=== PATIENT | female | born 1995 | race Two or more races ===

== ENCOUNTER 2024-05-26 22:20 | Emergency (ER) | payer SELFPAY ==
[~2024-05-26] VITALS: Ht 154.9 cm; Wt 55.0 kg
[2024-05-26 23:18] LABS: Urine Bacteria None Seen /hpf (None Seen)
[2024-05-26 23:23] LABS: Urine Blood Negative /uL (Negative); Urine Clarity Clear (Clear); Urine Color Yellow (Yellow); Urine Protein, UAD TRACE (Negative); Urine Specific Gravity 1.031 (1.001-1.035); Urine Urobilinogen Normal (Negative); Urine WBC 1 /hpf (0 - 5); Urine pH 6.5 (5.0-9.0)
[2024-05-26 23:36] LABS: Basophils # (auto) 0 10 ^3/uL (0-0.2); Basophils % (auto) 0.1 % (0.0-2.0); Eosinophils # (auto) 0 10 ^3/uL (0-0.8); Eosinophils % (auto) 0.1 % (0.0-7.0); Hematocrit 49.4 % (36.0-46.0); Hemoglobin 16.5 g/dL (12.2-16.2); Lymphocytes # (auto) 1.2 10 ^3/uL (0.4-5.4); Lymphocytes % (auto) 15.5 % (10.0-50.0); Mean Corpuscular Hemoglobin 30.7 pg (28.0-32.0); Mean Corpuscular Hgb Conc. 33.3 g/dL (32.0-36.0); Mean Corpuscular Volume 92.2 fL (80.0-100.0); Monocytes # (auto) 0.3 10 ^3/uL (0-1.3); Monocytes % (auto) 3.8 % (0.0-12.0); Neutrophils # (auto) 6.5 10 ^3/uL (1.6-8.6); Neutrophils % (auto) 80.5 % (37.0-80.0); Red Blood Cells 5.36 10^6/uL (4.0-5.20); Red Cell Distribution Width 13.1 % (11.8-14.3)
[2024-05-26 23:47] LABS: Alanine Aminotransferase 111 U/L (7-40); Albumin 4.6 g/dL (3.2-4.8); Alkaline Phosphatase 65 U/L (46-116); Anion Gap 10 (5-15); Aspartate Aminotransferase 61 U/L (13-40); BUN/Creatinine Ratio 18.6 (10.0-20.0); Blood Urea Nitrogen 18 mg/dL (9-23); Calcium 10.3 mg/dL (8.7-10.4); Carbon Dioxide 26 mmol/L (20-30); Chloride 99 mmol/L (98-107); Glucose 92 mg/dL (74-106); Lipase 49 U/L (12-53); Potassium 3.7 mmol/L (3.5-5.1); Sodium 135 mmol/L (136-145)
[2024-05-26 23:48] LABS: Bilirubin, Total 0.6 mg/dL (0.2-1.0)
[2024-05-27 02:40] VITALS: BP 112/61; PULSE 86; RESP 18; TEMP 97.8; O2SAT 96
[2024-05-27] MEDS ORDERED: ZOFR4T PO (13:00)
== END 2024-05-27 05:34 | disposition left against medical advice (07) ==
LOC: ER 22:20
DX: R11.2 Nausea with vomiting, unspecified (principal); R10.2 Pelvic and perineal pain; R10.84 Generalized abdominal pain; Z53.21 Procedure and treatment not carried out due to patient leaving prior to being seen by health care provider
CPT/HCPCS: 36415; 80053; 81001; 83690; 84702; 85025

== ENCOUNTER 2024-05-27 09:13 | Emergency (ER) | payer SELFPAY ==
[~2024-05-27] VITALS: Ht 154.9 cm; Wt 54.9 kg
[2024-05-27 09:27] VITALS: PULSE 72; RESP 16; O2SAT 96
[2024-05-27 09:29] LABS: Urine Bacteria None Seen /hpf (None Seen)
[2024-05-27] MEDS: SODIUM CHLORIDE 0.9% 1,000 ML IV ONE ×2 (09:29→11:12)
[2024-05-27] MEDS: ONDANSETRON HCL 4 MG/2 ML VIAL IV ONE (09:31)
[2024-05-27 09:38] LABS: Urine Blood Negative /uL (Negative); Urine Clarity Clear (Clear); Urine Color Yellow (Yellow); Urine Mucus FEW (None Seen); Urine Protein, UAD TRACE (Negative); Urine Specific Gravity 1.029 (1.001-1.035); Urine Urobilinogen Normal (Negative); Urine WBC 1 /hpf (0 - 5); Urine pH 5.5 (5.0-9.0)
[2024-05-27 12:58] VITALS: BP 113/62; PULSE 83; RESP 21; TEMP 98; O2SAT 96
[2024-05-27] MEDS ORDERED: ZOFR4T PO (13:00)
== END 2024-05-27 13:04 | disposition home or self-care (01) ==
LOC: ER 09:13
DX: T67.5XXA Heat exhaustion, unspecified, initial encounter (principal); E86.0 Dehydration; X58.XXXA Exposure to other specified factors, initial encounter; Y93.89 Activity, other specified; Y92.89 Other specified places as the place of occurrence of the external cause; Y99.8 Other external cause status
CPT/HCPCS: 81001; 81025; 96361; 96374; 99283; J2405; J7030